=== PATIENT | female | born 1970 | race Caucasian/White ===

== ENCOUNTER 2017-07-27 02:06 | Emergency (ER) | payer BC ==
[~2017-07-27] VITALS: Ht 167.6 cm; Wt 90.7 kg
[~2017-07-27 02:06] MED LIST: BUPR150T2; CIPR500 PO; ESTR1; FEM RING; FLUV50; HYDACE5325 PO; LEVSOD125; LEXAPRO; OMEP20ER PO; OXYACE5T PO; PHENA200 PO; PHENTERMINE; TRAZ100 PO
[2017-07-27] MEDS ORDERED: ESTR2 PO (02:18)
[2017-07-27] MEDS ORDERED: VICODIN 5-3001 EACH PO (02:19)
[2017-07-27 03:31] LABS: BASOPHILS ABSOLUTE AUTO 0.01 K/mm3 (0.00-0.23); BASOPHILS PERCENT AUTO 0 % (0-2); EOSINOPHILS ABSOLUTE AUTO 0.02 K/mm3 (0.00-0.68); EOSINOPHILS PERCENT AUTO 0 % (0-6); Hematocrit 39.9 % (33.0-51.0); Hemoglobin 13.3 g/dL (11.5-16.0); IMMATURE GRAN PERCENT AUTO 0 % (0-1); LYMPHOCYTES ABSOLUTE AUTO 1.82 K/mm3 (0.84-5.20); LYMPHOCYTES PERCENT AUTO 29 % (21-46); MONOCYTES ABSOLUTE AUTO 0.41 K/mm3 (0.16-1.47); MONOCYTES PERCENT AUTO 7 % (4-13); Mean Corpuscular HGB 31.4 pg (26.0-34.0); Mean Corpuscular HGB Conc 33.3 g/dL (31.5-36.5); Mean Corpuscular Volume 94 fL (80-100); NEUTROPHILS ABSOLUTE AUTO 3.99 K/mm3 (1.96-9.15); NEUTROPHILS PERCENT AUTO 64 % (41-73); Platelet Count 256 K/mm3 (150-400); RDW Coefficient Variation 12.2 % (11.7-14.2); RDW Standard Deviation 41.6 fL (35.1-46.3); Red Blood Cell Count 4.23 M/mm3 (3.80-5.20); White Blood Cell Count 6.25 K/mm3 (4.00-11.30)
[2017-07-27 04:07] LABS: Alanine Aminotransfer (ALT/SGP 70 U/L (12-78); Albumin, Blood 3.8 g/dL (3.4-5.0); Alk Phos 40 U/L (50-136); Anion Gap 9 mmol/L (6-16); Aspartate Aminotrans (AST/SGOT 22 U/L (12-37); Blood Urea Nitrogen 13 mg/dL (8-24); Bun/Creatinine Ratio 18.6 (12.0-20.0); CO2, Blood 23 mmol/L (21-32); Calcium, Blood 8.8 mg/dL (8.5-10.1); Chloride, Blood 108 mmol/L (98-108); Glomerular Filtration Rate >60 (60-); Glucose, Blood 95 mg/dL (70-99); Potassium, Blood 3.8 mmol/L (3.5-5.5); Sodium, Blood 140 mmol/L (136-145); Total Protein, Blood 7.8 g/dL (6.4-8.2)
[2017-07-27 04:11] LABS: Bilirubin, Total 0.5 mg/dL (0.1-1.0)
[2017-07-27] MEDS ORDERED: Norco 5-325 Ta1 EACH PO (05:08)
== END 2017-07-27 05:23 | disposition home or self-care (01) ==
LOC: ER 02:06
PROVIDERS: Emergency Medicine
DX: R10.9 Unspecified abdominal pain (principal); Z88.8 Allergy status to other drugs, medicaments and biological substances; Z91.041 Radiographic dye allergy status; Z88.5 Allergy status to narcotic agent; Z79.899 Other long term (current) drug therapy; Z79.891 Long term (current) use of opiate analgesic
CPT/HCPCS: 36415; 74176; 80053; 81000; 85025; 96361; 96374; 96375; 99284; J1170; J1885; J7030

== ENCOUNTER 2017-07-30 18:05 | Observation (INO) | payer BC ==
[~2017-07-30] VITALS: Ht 167.6 cm; Wt 90.2 kg
[~2017-07-30 18:05] MED LIST changes: +ESTR2 PO; +Norco 5-325 Ta1 EACH PO; +VICODIN 5-3001 EACH PO
[2017-07-30 20:10] LABS: BASOPHILS ABSOLUTE AUTO 0.01 K/mm3 (0.00-0.23); BASOPHILS PERCENT AUTO 0 % (0-2); EOSINOPHILS PERCENT AUTO 0 % (0-6); Hematocrit 39.1 % (33.0-51.0); Hemoglobin 13.5 g/dL (11.5-16.0); IMMATURE GRAN ABSOLUTE AUTO 0.01 K/mm3 (0.00-0.10); IMMATURE GRAN PERCENT AUTO 0 % (0-1); LYMPHOCYTES ABSOLUTE AUTO 3.15 K/mm3 (0.84-5.20); LYMPHOCYTES PERCENT AUTO 39 % (21-46); MONOCYTES ABSOLUTE AUTO 0.43 K/mm3 (0.16-1.47); MONOCYTES PERCENT AUTO 5 % (4-13); Mean Corpuscular HGB 31.8 pg (26.0-34.0); Mean Corpuscular HGB Conc 34.5 g/dL (31.5-36.5); Mean Corpuscular Volume 92 fL (80-100); Mean Platelet Volume 9.4 fL (9.1-12.4); NEUTROPHILS ABSOLUTE AUTO 4.41 K/mm3 (1.96-9.15); NEUTROPHILS PERCENT AUTO 55 % (41-73); Platelet Count 272 K/mm3 (150-400); RDW Coefficient Variation 11.9 % (11.7-14.2); RDW Standard Deviation 40.4 fL (35.1-46.3); Red Blood Cell Count 4.24 M/mm3 (3.80-5.20); White Blood Cell Count 8.01 K/mm3 (4.00-11.30)
[2017-07-30 20:37] LABS: Alanine Aminotransfer (ALT/SGP 57 U/L (12-78); Albumin, Blood 3.9 g/dL (3.4-5.0); Alk Phos 44 U/L (50-136); Anion Gap 11 mmol/L (6-16); Aspartate Aminotrans (AST/SGOT 18 U/L (12-37); Bilirubin, Total 0.4 mg/dL (0.1-1.0); Blood Urea Nitrogen 17 mg/dL (8-24); Bun/Creatinine Ratio 23.3 (12.0-20.0); CO2, Blood 24 mmol/L (21-32); Calcium, Blood 8.9 mg/dL (8.5-10.1); Chloride, Blood 106 mmol/L (98-108); Creatinine, Blood 0.73 mg/dL (0.40-1.00); Glomerular Filtration Rate >60 (60-); Glucose, Blood 85 mg/dL (70-99); Potassium, Blood 3.5 mmol/L (3.5-5.5); Sodium, Blood 141 mmol/L (136-145); Total Protein, Blood 7.9 g/dL (6.4-8.2)
[2017-07-30 21:59] LABS: Source, Urine Voided
[2017-07-30 22:07] LABS: Bilirubin, Urine Neg (Neg); Blood, Urine 1+ (Neg); Glucose Qualitative, Urine Neg (Neg); Ketones, Urine Neg (Neg); Leukocyte Esterase, Urine 1+ (Neg); Nitrite, Urine Neg (Neg); Protein, Urine Neg (Neg); Urobilinogen, Urine NORM (Normal)
[2017-07-30 22:16] LABS: Appearance, Urine Hazy (Clear); Color, Urine Pale Yellow (P-Yellow)
[2017-07-30 22:17] LABS: Bacteria Many /hpf; Red Blood Cells, Urine 0-2 /hpf (0-2); White Blood Cells, Urine 0-2 /hpf (0-5)
[2017-07-30 22:18] LABS: Squamous Epithelial Cells Few /hpf (Few)
[2017-08-01] MEDS ORDERED: GABA300 PO (11:01)
[2017-08-01] MEDS ORDERED: Percocet 5-3251 EACH PO (11:02)
[2017-08-01] MEDS ORDERED: FAMC500 PO (11:03)
== END 2017-08-01 11:51 | disposition home or self-care (01) ==
LOC: ER 18:05 → MEDS 18:06
PROVIDERS: Emergency Medicine; Physician Assistant
DX: B02.29 Other postherpetic nervous system involvement (principal); Z91.041 Radiographic dye allergy status; Z88.5 Allergy status to narcotic agent; Z88.6 Allergy status to analgesic agent; Z88.8 Allergy status to other drugs, medicaments and biological substances; Z79.810 Long term (current) use of selective estrogen receptor modulators (SERMs); Z79.899 Other long term (current) drug therapy; Z90.49 Acquired absence of other specified parts of digestive tract; Z90.710 Acquired absence of both cervix and uterus; Z90.722 Acquired absence of ovaries, bilateral; Z90.79 Acquired absence of other genital organ(s); Z98.890 Other specified postprocedural states
CPT/HCPCS: 36415; 80053; 81001; 83690; 85025; 87086; 96361; 96374; 96375; 96376; 99285; G0378; J1170; J2550; J7030

== ENCOUNTER 2020-01-01 08:45 | Day surgery (SDC) | payer BC ==
[~2020-01-01] VITALS: Ht 167.6 cm; Wt 88.7 kg
[~2020-01-01 08:45] MED LIST changes: +FAMC500 PO; +GABA300 PO; +Percocet 5-3251 EACH PO; +SUCR1
--- NOTE | 2020-01-01 11:04 | NUR ---
01/01/20 1104 Marley Mercer PT. C/O NAUSEA POST UPPER ENDO. PT. VOMITING CLEAR WITH BROWN. DR. LEE AWARE. ORDER GIVEN FOR PHENERGAN FOR NAUSEA WHICH 12.5MG IV WAS GIVEN. PHENERGAN WAS MIXED IN 10ML NACL SYRINGE & GIVEN TO PT. SLOWLY THRU HER IV. PT. ALSO VERBALIZES HAVING A LITTLE BIT OF A SORE THROAT. PHENERGAN GIVEN AT 1050 & AT 1103 PT. VERBALIZES STILL SOME NAUSEA BUT BETTER. PT. GIVEN A WARM BLANKET. DISCHARGED INSTRUCTIONS GIVEN TO PT. WITH UNDERSTANDING. PT. DENIES ANY TROUBLE SWALLOWING.
== END 2020-01-01 11:19 | disposition home or self-care (01) ==
LOC: ORSCSDS 08:45
PROVIDERS: Internal Medicine Gastroenterology
PROC: 0D758ZZ Dilation of Esophagus, Via Natural or Artificial Opening Endoscopic (ICD-10-PCS; 2020-01-01)
PROC: 0DB48ZX Excision of Esophagogastric Junction, Via Natural or Artificial Opening Endoscopic, Diagnostic (ICD-10-PCS; principal; 2020-01-01 10:00)
PROC: 0DB68ZX Excision of Stomach, Via Natural or Artificial Opening Endoscopic, Diagnostic (ICD-10-PCS; principal; 2020-01-01 10:00)
PROC: 0DB58ZX Excision of Esophagus, Via Natural or Artificial Opening Endoscopic, Diagnostic (ICD-10-PCS; principal; 2020-01-01 10:00)
PROC: 0DB98ZX Excision of Duodenum, Via Natural or Artificial Opening Endoscopic, Diagnostic (ICD-10-PCS; principal; 2020-01-01 10:00)
DX: R13.10 Dysphagia, unspecified (principal); K29.80 Duodenitis without bleeding; K31.7 Polyp of stomach and duodenum; K21.9 Gastro-esophageal reflux disease without esophagitis; R07.0 Pain in throat; E03.9 Hypothyroidism, unspecified; E66.9 Obesity, unspecified; Z68.32 Body mass index [BMI] 32.0-32.9, adult; Z79.3 Long term (current) use of hormonal contraceptives; Z79.899 Other long term (current) drug therapy
CPT/HCPCS: 88305; 88342; J2550; J2704; J7120

== ENCOUNTER → 2020-02-11 | Outpatient (CLI) | payer BC | END | disposition home or self-care (01) | LOC: LAB 19:04 → LAB SHORT 19:04 | DX: R50.9 Fever, unspecified (principal); R05 Cough | CPT/HCPCS: 87081 ==

== ENCOUNTER 2020-06-24 08:51 | Emergency (ER) | payer BC ==
[~2020-06-24] VITALS: Ht 167.6 cm; Wt 99.8 kg
[2020-06-24] MEDS ORDERED: [UNRECOGNIZED DRUG - OTHER] (09:07)
[2020-06-24] MEDS ORDERED: Percocet 5-3251 EACH PO (11:18)
== END 2020-06-24 11:30 | disposition home or self-care (01) ==
LOC: ER 08:51
DX: M75.102 Unspecified rotator cuff tear or rupture of left shoulder, not specified as traumatic (principal); Z91.041 Radiographic dye allergy status; Z88.5 Allergy status to narcotic agent; Z88.2 Allergy status to sulfonamides; Z79.899 Other long term (current) drug therapy
CPT/HCPCS: 73030; 99283-25; A9270